=== PATIENT | male | born 1945 | race Native Hawaiian/Other Pacific Islander ===

== ENCOUNTER 2017-11-21 12:44 | Emergency (ER) | payer OTHER ==
[~2017-11-21] VITALS: Ht 172.7 cm; Wt 59.0 kg
[2017-11-21 13:17] VITALS: TEMP 97.7
[2017-11-21] MEDS ORDERED: DULO60CA2 (13:20)
[2017-11-21] MEDS ORDERED: LYRICA50 MG OR (13:21)
[2017-11-21] MEDS ORDERED: HYDR10TA51 PO (13:21)
[2017-11-21 13:48] LABS: PLATELET COUNT 446 K/uL (142-355)
[2017-11-21 18:08] VITALS: BP 142/74
== END 2017-11-21 18:08 | disposition home or self-care (01) ==
LOC: ED 12:44
DX: L50.8 Other urticaria (principal)
CPT/HCPCS: 36415; 85027; 85651; 86140; 96360; 96361; 96374; 96375; 99284; J1200; J2060; J2930